=== PATIENT | female | born 1960 | race Caucasian/White ===

== ENCOUNTER 2021-05-31 06:23 | Day surgery (SDC) | payer BC, SELFPAY ==
[2021-05-24 14:43] VITALS: BMI 31.5
--- NOTE | 2021-05-27 08:22 | MHC.SHP ---
Pre-Procedural Eval Section A Date of Service: 05/27/21 The patient is an INPATIENT: No Changes since office visit: No Cold of Flu in the past 2 weeks, No New Medical Problems, No Changes in Medication and No Patient answered all questions The History & Physical has been completed within 30 days and I have reviewed it.: Yes Section B Chief Complaint: cataract left eye Allergies: Allergies Allergy/AdvReac Type Severity Reaction Status Date / Time azithromycin Allergy Intermediate Rash Verified 05/24/21 14:34 bupropion [From Wellbutrin] Allergy Intermediate Hives Verified 05/24/21 14:34 ciprofloxacin Allergy Intermediate Rash Verified 05/24/21 14:34 hydrocodone [From Vicodin] Allergy Intermediate Rash Verified 05/24/21 14:34 Penicillins Allergy Intermediate Hives Verified 05/24/21 14:33 Plan Diagnosis/Plan: Unchanged I have reviewed the history and physical and performed a pertinent physical examination on my patient. No changes have occurred unless specified.
--- NOTE | 2021-05-28 08:35 | HO.ANESPROP2 ---
Documented by User: Samantha Almonte NP 05/28/21 08:43 HPI - Anesthesia Eval Consult details Narrative: 61yo F for Left Cataract Extraction IOL Insertion Daily steroids for hypopituitarism. Bottle Washer requests stress dosing. Protocol on chart No prev cataract on record PCP cleared PMFSH Past Medical History Medical History Adrenal insufficiency CAD (coronary artery disease) Cataract Compression fracture of body of thoracic vertebra COPD (chronic obstructive pulmonary disease) COVID-19 vaccine series completed DDD (degenerative disc disease), cervical DDD (degenerative disc disease), lumbar Diabetes Elevated cholesterol Gout History of COVID-19 Hypopituitarism Hypothyroid Low back pain Numbness and tingling of foot Osteoporosis PVD (peripheral vascular disease) Schatzki's ring Use of cane as ambulatory aid Surgical History Surgical History History of angioplasty of peripheral vessel History of back surgery History of esophagogastroduodenoscopy (EGD) Hx of appendectomy Hx of colonoscopy Hx of tooth extraction Social History Social History (Updated 05/24/21 @ 14:42 by Inga Nolan RN) Household Members: Spouse and Family Housing: House Are you a primary assistant child care teacher to a significant other at home: No Do you presently have visiting nurse or other home services: No Patient Tobacco Use Status: Current everyday Tobacco user Tobacco use type: Cigarette Cigarettes Per Day: 5 Years Smoked: 50 Use of substances other than those prescribed or required for medical reasons: No Have you been hit, kicked, punched, or otherwise hurt by someone within the past year? If so, by whom?: No Are you DNR?: No Advance Directives: No Advance Directives Information Provided: No Advance Directives on File: No Meds Allergies Allergy/AdvReac Type Severity Reaction Status Date / Time azithromycin Allergy Intermediate Rash Verified 05/31/21 06:42 bupropion [From Wellbutrin] Allergy Intermediate Hives Verified 05/31/21 06:42 ciprofloxacin Allergy Intermediate Rash Verified 05/31/21 06:42 hydrocodone [From Vicodin] Allergy Intermediate Rash Verified 05/31/21 06:42 Penicillins Allergy Intermediate Hives Verified 05/31/21 06:42 Home Medications Medication Instructions Recorded Confirmed Last Taken Type albuterol sulfate 90 mcg/actuation 2 puff INHALATION Q4H PRN 05/24/21 05/24/21 Unknown History aerosol inhaler atorvastatin 40 mg tablet 2 tab PO BEDTIME 05/24/21 05/24/21 Unknown History calcium carbonate 600 mg-vitamin 1 tab PO BID 05/24/21 05/24/21 Unknown History D3 10 mcg (400 unit) tablet cyclobenzaprine 10 mg tablet 1 tab PO TID PRN 05/24/21 05/24/21 Unknown History fluoxetine 20 mg capsule 1 cap PO BEDTIME 05/24/21 05/24/21 Unknown History gabapentin 300 mg capsule 1 cap PO TID 05/24/21 05/24/21 05/31/21 05:45 History levothyroxine 100 mcg tablet 100 mcg PO DAILY 05/24/21 05/24/21 05/31/21 05:45 History metformin 500 mg tablet,extended 1 tab PO QAM 05/24/21 05/24/21 Unknown History release 24 hr omeprazole 20 mg capsule,delayed 1 cap PO DAILY 05/24/21 05/24/21 05/31/21 05:45 History release tramadol 50 mg tablet 2 tab PO TID PRN 05/24/21 05/24/21 05/31/21 05:45 History trospium 20 mg tablet 1 tab PO BID 05/24/21 05/24/21 05/31/21 05:45 History hydrocortisone 5 mg tablet mg PO BID 05/31/21 05/31/21 05/31/21 05:45 History Exam Exam Date and Time: May 28, 2021 0835 Height,Weight and Vital Signs: Height 5 ft 0.5 in Weight 74.389 kg Assessment and Plan Assessment Anesthesia Assessment: Chart Reviewed Documented by User: Lizandro Sanderson MD 05/31/21 07:00 [facility] Past Medical History Medical History Adrenal insufficiency CAD (coronary artery disease) Cataract Compression fracture of body of thoracic vertebra COPD (chronic obstructive pulmonary disease) COVID-19 vaccine series completed DDD (degenerative disc disease), cervical DDD (degenerative disc disease), lumbar Diabetes Elevated cholesterol Gout History of COVID-19 Hypopituitarism Hypothyroid Low back pain Numbness and tingling of foot Osteoporosis PVD (peripheral vascular disease) Schatzki's ring Use of cane as ambulatory aid Family History Family history of problems with anesthesia: No Surgical History Surgical History History of angioplasty of peripheral vessel History of back surgery History of esophagogastroduodenoscopy (EGD) Hx of appendectomy Hx of colonoscopy Hx of tooth extraction History of Problems with Anesthesia: Yes Social History Social History (Updated 05/24/21 @ 14:42 by Inga Nolan RN) Household Members: Spouse and Family Housing: House Are you a primary assistant child care teacher to a significant other at home: No Do you presently have visiting nurse or other home services: No Patient Tobacco Use Status: Current everyday Tobacco user Tobacco use type: Cigarette Cigarettes Per Day: 5 Years Smoked: 50 Use of substances other than those prescribed or required for medical reasons: No Have you been hit, kicked, punched, or otherwise hurt by someone within the past year? If so, by whom?: No Are you DNR?: No Advance Directives: No Advance Directives Information Provided: No Advance Directives on File: No Meds Allergies Allergy/AdvReac Type Severity Reaction Status Date / Time azithromycin Allergy Intermediate Rash Verified 05/31/21 06:42 bupropion [From Wellbutrin] Allergy Intermediate Hives Verified 05/31/21 06:42 ciprofloxacin Allergy Intermediate Rash Verified 05/31/21 06:42 hydrocodone [From Vicodin] Allergy Intermediate Rash Verified 05/31/21 06:42 Penicillins Allergy Intermediate Hives Verified 05/31/21 06:42 Home Medications Medication Instructions Recorded Confirmed Last Taken Type albuterol sulfate 90 mcg/actuation 2 puff INHALATION Q4H PRN 05/24/21 05/24/21 Unknown History aerosol inhaler atorvastatin 40 mg tablet 2 tab PO BEDTIME 05/24/21 05/24/21 Unknown History calcium carbonate 600 mg-vitamin 1 tab PO BID 05/24/21 05/24/21 Unknown History D3 10 mcg (400 unit) tablet cyclobenzaprine 10 mg tablet 1 tab PO TID PRN 05/24/21 05/24/21 Unknown History fluoxetine 20 mg capsule 1 cap PO BEDTIME 05/24/21 05/24/21 Unknown History gabapentin 300 mg capsule 1 cap PO TID 05/24/21 05/24/21 05/31/21 05:45 History levothyroxine 100 mcg tablet 100 mcg PO DAILY 05/24/21 05/24/21 05/31/21 05:45 History metformin 500 mg tablet,extended 1 tab PO QAM 05/24/21 05/24/21 Unknown History release 24 hr omeprazole 20 mg capsule,delayed 1 cap PO DAILY 05/24/21 05/24/21 05/31/21 05:45 History release tramadol 50 mg tablet 2 tab PO TID PRN 05/24/21 05/24/21 05/31/21 05:45 History trospium 20 mg tablet 1 tab PO BID 05/24/21 05/24/21 05/31/21 05:45 History hydrocortisone 5 mg tablet mg PO BID 05/31/21 05/31/21 05/31/21 05:45 History Exam Airway Mallampati Class: II TM Dist: >3cm Denture: Upper Loose/Missing/Broken Teeth: Yes (lower middle tooth missing, poor dentition) Heart: [id number] Lungs: cta b/l Assessment and Plan Assessment Anesthesia Assessment: Anesthesia Plan Discussed Final Anesthetic Review Family History of Problems with Anesthesia: No History of Problems with Anesthesia: Yes NPO: Yes ASA Class: III Final Preanesthetic Review: No Changes in Pt Med Stat, Meds/Allgs Chart Reviewed, Consent Obtained/Reviewed and Anes Risks/Benef Reviewed Patient Risk: Intermediate Procedure Risk: Low Assessment/Block/Sedation in SS: Assess/Block/Sedation-SS Anesthetic Plan Anesthetic Plan: MAC: and Agree w/ Assess. and Plan Disposition: Standard PACU
[2021-05-31 06:48] LABS: Glucose, Whole Blood 120 mg/dL (60-115)
[2021-05-31 07:04] VITALS: BP 114/54; PULSE 96; RESP 16; TEMP 36.5; O2SAT 94
[2021-05-31] MEDS: Tetracaine HCl/PF 0.5% Oph Sol 4 ML DROPS 1 DROP EYE-LEFT (07:04)
[2021-05-31] MEDS: Tropicamide 1 % Ophth Sol 3 ML BTL 1 DROP EYE-LEFT ×3 (07:05→07:14)
[2021-05-31] MEDS: Lactated Ringers 500 ML 50 ML IV (07:06)
[2021-05-31] MEDS: Phenylephrine HCL 2.5% Oph SoL 2 ML BOTTLE 1 DROP EYE-LEFT ×3 (07:08→07:17)
--- NOTE | 2021-05-31 07:51 | HO.PNOPHT ---
Ophthalmology Procedure Procedure Date of Service: 05/31/21 Ophthalmology Viscoelastic: Heallonnie Duet Dual Pack Pro Ophthalmology Lenses: TECNIS [id number] (16.5) Procedure Notes: PREOPERATIVE DIAGNOSIS: Decreased visual acuity left eye secondary to cataract POSTOPERATIVE DIAGNOSIS: Same PROCEDURE: Left cataract extraction with intraocular lens insertion SURGEON: Aaron Peres M.D. ANESTHESIA: Topical/MAC ESTIMATED BLOOD LOSS: None COMPLICATIONS: None After obtaining informed consent, the patient was brought to the operation room suite and placed in the supine position. After adequate sedation per anesthesia, topical drops of Tetracaine were given to the left eye. The eye was then prepped and draped in the usual sterile fashion. The operating room microscope was then positioned over the operative eye and a lid speculum placed. A paracentesis was created. Viscoelastic was then instilled into the anterior chamber. A three plane incision was then created temporally, utilizing a 2.85 mm keratome. Capsulotomy forceps were then utilized to create a circular tear capsulotomy. Hydrodissection and hydrodelineation were carried out until adequate mobilization of the nucleus occurred. Phacoemulsification was then utilized to remove the dense central nucleus followed by removal of the cortical material utilizing the automated aspiration irrigation unit. Viscoat elastic was instilled into the posterior capsular bag followed by placement of a posterior chamber intraocular lens without difficulty. The residual Viscoat elastic was then removed utilizing the automated IA machine. The wound was check and found to be watertight. The patient tolerated the procedure well and the lid speculum was removed. Intracameral injection of Vigamox 0.1 mL followed by a subtenon injection of Kenalog-40 0.2 mL were administered. The patient will be seen in the a.m.
[2021-05-31 08:14] VITALS: BP 114/66; PULSE 85; RESP 17; TEMP 36.6; O2SAT 94
== END 2021-05-31 08:31 | disposition home or self-care (01) ==
PROVIDERS: PCP Internal Medicine; Visit Provider Ophthalmology
PROC: (CPT 66985; principal; 2021-05-31 08:50)
DX: H25.12 Age-related nuclear cataract, left eye (principal); H54.7 Unspecified visual loss; D35.2 Benign neoplasm of pituitary gland; E23.0 Hypopituitarism; E27.40 Unspecified adrenocortical insufficiency; J44.9 Chronic obstructive pulmonary disease, unspecified; E03.9 Hypothyroidism, unspecified; I25.10 Atherosclerotic heart disease of native coronary artery without angina pectoris; I73.9 Peripheral vascular disease, unspecified; E78.00 Pure hypercholesterolemia, unspecified; E11.9 Type 2 diabetes mellitus without complications; Z79.84 Long term (current) use of oral hypoglycemic drugs; Z79.82 Long term (current) use of aspirin; Z79.899 Other long term (current) drug therapy; F17.210 Nicotine dependence, cigarettes, uncomplicated; Z88.0 Allergy status to penicillin; Z88.1 Allergy status to other antibiotic agents; Z88.8 Allergy status to other drugs, medicaments and biological substances; Z86.16 Personal history of COVID-19
CPT/HCPCS: 66984; 82947; J2250; J2405; J3010; J3300; V2632

== ENCOUNTER 2021-06-21 08:35 | Day surgery (SDC) | payer BC, SELFPAY ==
[2021-05-24 14:51] VITALS: BMI 31.5
--- NOTE | 2021-06-17 16:26 | MHC.SHP ---
Pre-Procedural Eval Section A Date of Service: 06/17/21 The patient is an INPATIENT: No Changes since office visit: No Cold of Flu in the past 2 weeks, No New Medical Problems, No Changes in Medication and No Patient answered all questions The History & Physical has been completed within 30 days and I have reviewed it.: Yes Section B Chief Complaint: cataract right eye Allergies: Allergies Allergy/AdvReac Type Severity Reaction Status Date / Time azithromycin Allergy Intermediate Rash Verified 05/31/21 06:42 bupropion [From Wellbutrin] Allergy Intermediate Hives Verified 05/31/21 06:42 ciprofloxacin Allergy Intermediate Rash Verified 05/31/21 06:42 hydrocodone [From Vicodin] Allergy Intermediate Rash Verified 05/31/21 06:42 Penicillins Allergy Intermediate Hives Verified 05/31/21 06:42 Plan Diagnosis/Plan: Unchanged I have reviewed the history and physical and performed a pertinent physical examination on my patient. No changes have occurred unless specified.
--- NOTE | 2021-06-18 09:07 | HO.ANESPROP2 ---
Documented by User: Samantha Almonte NP 06/18/21 09:08 HPI - Anesthesia Eval Consult details Narrative: 61yo F for Right Cataract Extraction IOL Insertion PCP Cleared Left eye 05/31/21 with MAC: Fent 50, Midaz 1, Zofran 4, Hydrocortisone 100 Daily steroids for hypopituitarism. Clinical Exercise Physiologist requests stress dosing. Protocol on chart [facility] Past Medical History Medical History Adrenal insufficiency CAD (coronary artery disease) Cataract Compression fracture of body of thoracic vertebra COPD (chronic obstructive pulmonary disease) COVID-19 vaccine series completed DDD (degenerative disc disease), cervical DDD (degenerative disc disease), lumbar Diabetes Elevated cholesterol Gout History of COVID-19 Hypopituitarism Hypothyroid Low back pain Numbness and tingling of foot Osteoporosis PVD (peripheral vascular disease) Schatzki's ring Use of cane as ambulatory aid Family History Family history of problems with anesthesia: No Surgical History Surgical History History of angioplasty of peripheral vessel History of back surgery History of esophagogastroduodenoscopy (EGD) Hx of appendectomy Hx of colonoscopy Hx of tooth extraction History of Problems with Anesthesia: Yes Social History Social History (Updated 06/21/21 @ 10:54 by Sandrine Trejo MD) Household Members: Spouse and Family Housing: House Are you a primary pharmacist critical care to a significant other at home: No Do you presently have visiting nurse or other home services: No Patient Tobacco Use Status: Current everyday Tobacco user Tobacco use type: Cigarette Cigarettes Per Day: 5 Years Smoked: 50 Smoked in Last 30 Days: Yes Have you been hit, kicked, punched, or otherwise hurt by someone within the past year? If so, by whom?: No Are you DNR?: No Advance Directives: No Advance Directives Information Provided: Yes Recently lost weight without trying: No Meds Allergies Allergy/AdvReac Type Severity Reaction Status Date / Time azithromycin Allergy Intermediate Rash Verified 05/31/21 06:42 bupropion [From Wellbutrin] Allergy Intermediate Hives Verified 05/31/21 06:42 ciprofloxacin Allergy Intermediate Rash Verified 05/31/21 06:42 hydrocodone [From Vicodin] Allergy Intermediate Rash Verified 05/31/21 06:42 Penicillins Allergy Intermediate Hives Verified 05/31/21 06:42 Home Medications Medication Instructions Recorded Confirmed Last Taken Type albuterol sulfate 90 mcg/actuation 2 puff INHALATION Q4H PRN 05/24/21 05/24/21 Unknown History aerosol inhaler atorvastatin 40 mg tablet 2 tab PO BEDTIME 05/24/21 05/24/21 Unknown History calcium carbonate 600 mg-vitamin 1 tab PO BID 05/24/21 05/24/21 Unknown History D3 10 mcg (400 unit) tablet cyclobenzaprine 10 mg tablet 1 tab PO TID PRN 05/24/21 05/24/21 Unknown History fluoxetine 20 mg capsule 1 cap PO BEDTIME 05/24/21 05/24/21 Unknown History gabapentin 300 mg capsule 1 cap PO TID 05/24/21 05/24/21 06/21/21 History levothyroxine 100 mcg tablet 100 mcg PO DAILY 05/24/21 05/24/21 06/21/21 History metformin 500 mg tablet,extended 1 tab PO QAM 05/24/21 05/24/21 Unknown History release 24 hr omeprazole 20 mg capsule,delayed 1 cap PO DAILY 05/24/21 05/24/21 05/31/21 05:45 History release tramadol 50 mg tablet 2 tab PO TID PRN 05/24/21 05/24/21 06/21/21 History trospium 20 mg tablet 1 tab PO BID 05/24/21 05/24/21 06/21/21 History hydrocortisone 5 mg tablet mg PO BID 05/31/21 05/31/21 06/21/21 History Exam Exam Date and Time: June 18, 2021 0907 Height,Weight and Vital Signs: Height 5 ft 0.5 in Weight 74.389 kg Assessment and Plan Assessment Anesthesia Assessment: Chart Reviewed Final Anesthetic Review Family History of Problems with Anesthesia: No History of Problems with Anesthesia: Yes Documented by User: Sandrine Trejo MD 06/21/21 10:57 PMFSH Active Problems Active Problems: Denies recent chest pain Stress dose steroids requested by electric meter technician. Administered as ordered. Past Medical History Medical History Adrenal insufficiency CAD (coronary artery disease) Cataract Compression fracture of body of thoracic vertebra COPD (chronic obstructive pulmonary disease) COVID-19 vaccine series completed DDD (degenerative disc disease), cervical DDD (degenerative disc disease), lumbar Diabetes Elevated cholesterol Gout History of COVID-19 Hypopituitarism Hypothyroid Low back pain Numbness and tingling of foot Osteoporosis PVD (peripheral vascular disease) Schatzki's ring Use of cane as ambulatory aid Surgical History Surgical History History of angioplasty of peripheral vessel History of back surgery History of esophagogastroduodenoscopy (EGD) Hx of appendectomy Hx of colonoscopy Hx of tooth extraction Social History Social History (Updated 06/21/21 @ 10:54 by Sandrine Trejo MD) Household Members: Spouse and Family Housing: House Are you a primary pharmacist critical care to a significant other at home: No Do you presently have visiting nurse or other home services: No Patient Tobacco Use Status: Current everyday Tobacco user Tobacco use type: Cigarette Cigarettes Per Day: 5 Years Smoked: 50 Smoked in Last 30 Days: Yes Have you been hit, kicked, punched, or otherwise hurt by someone within the past year? If so, by whom?: No Are you DNR?: No Advance Directives: No Advance Directives Information Provided: Yes Recently lost weight without trying: No Meds Allergies Allergy/AdvReac Type Severity Reaction Status Date / Time azithromycin Allergy Intermediate Rash Verified 05/31/21 06:42 bupropion [From Wellbutrin] Allergy Intermediate Hives Verified 05/31/21 06:42 ciprofloxacin Allergy Intermediate Rash Verified 05/31/21 06:42 hydrocodone [From Vicodin] Allergy Intermediate Rash Verified 05/31/21 06:42 Penicillins Allergy Intermediate Hives Verified 05/31/21 06:42 Home Medications Medication Instructions Recorded Confirmed Last Taken Type albuterol sulfate 90 mcg/actuation 2 puff INHALATION Q4H PRN 05/24/21 05/24/21 Unknown History aerosol inhaler atorvastatin 40 mg tablet 2 tab PO BEDTIME 05/24/21 05/24/21 Unknown History calcium carbonate 600 mg-vitamin 1 tab PO BID 05/24/21 05/24/21 Unknown History D3 10 mcg (400 unit) tablet cyclobenzaprine 10 mg tablet 1 tab PO TID PRN 05/24/21 05/24/21 Unknown History fluoxetine 20 mg capsule 1 cap PO BEDTIME 05/24/21 05/24/21 Unknown History gabapentin 300 mg capsule 1 cap PO TID 05/24/21 05/24/21 06/21/21 History levothyroxine 100 mcg tablet 100 mcg PO DAILY 05/24/21 05/24/21 06/21/21 History metformin 500 mg tablet,extended 1 tab PO QAM 05/24/21 05/24/21 Unknown History release 24 hr omeprazole 20 mg capsule,delayed 1 cap PO DAILY 05/24/21 05/24/21 05/31/21 05:45 History release tramadol 50 mg tablet 2 tab PO TID PRN 05/24/21 05/24/21 06/21/21 History trospium 20 mg tablet 1 tab PO BID 05/24/21 05/24/21 06/21/21 History hydrocortisone 5 mg tablet mg PO BID 05/31/21 05/31/21 06/21/21 History Exam Height,Weight and Vital Signs: Height 5 ft 0.5 in Weight 74.389 kg Vital Signs Temp Pulse Resp BP Pulse Ox 06/21/21 10:00 96.9 F 91 16 135/65 96 Pertinent Lab Results Pertinent Lab Results: Lab Results 06/21/21 Range/Units 10:04 POC Glucose 102 (60-115) mg/dL Airway Mallampati Class: II TM Dist: >3cm Neck ROM: Full Denture: Upper Loose/Missing/Broken Teeth: Yes (Missing lower middle) Heart: RRR Lungs: CTAB Assessment and Plan Assessment Anesthesia Assessment: Anesthesia Plan Discussed Final Anesthetic Review NPO: Yes ASA Class: III Final Preanesthetic Review: No Changes in Pt Med Stat, Meds/Allgs Chart Reviewed, Consent Obtained/Reviewed and Anes Risks/Benef Reviewed Patient Risk: Intermediate Procedure Risk: Low Assessment/Block/Sedation in SS: Assess/Block/Sedation-SS Anesthetic Plan Anesthetic Plan: MAC: Disposition: Standard PACU
[2021-06-21 10:00] VITALS: BP 135/65; PULSE 91; RESP 16; TEMP 36.1; O2SAT 96
[2021-06-21] MEDS: Lactated Ringers 500 ML 50 ML IV (10:06)
[2021-06-21] MEDS: Tetracaine HCl/PF 0.5% Oph Sol 4 ML DROPS 1 DROP EYE-RIGHT (10:10)
[2021-06-21] MEDS: Tropicamide 1 % Ophth Sol 3 ML BTL 1 DROP EYE-RIGHT ×3 (10:12→10:23)
[2021-06-21] MEDS: Phenylephrine HCL 2.5% Oph SoL 2 ML BOTTLE 1 DROP EYE-RIGHT ×3 (10:14→10:26)
[2021-06-21 10:22] LABS: Glucose, Whole Blood 102 mg/dL (60-115)
--- NOTE | 2021-06-21 10:57 | HO.PNOPHT ---
Ophthalmology Procedure Procedure Date of Service: 06/21/21 Ophthalmology Viscoelastic: Marietta Keet Dual Pack Pro Ophthalmology Lenses: TECNABEEL [id number] (16) Procedure Notes: PREOPERATIVE DIAGNOSIS: Decreased visual acuity right eye secondary to cataract POSTOPERATIVE DIAGNOSIS: Same PROCEDURE: Right cataract extraction with intraocular lens insertion SURGEON: Aaron Peres M.D. ANESTHESIA: Topical/MAC ESTIMATED BLOOD LOSS: None COMPLICATIONS: None After obtaining informed consent, the patient was brought to the operating room suite and placed in the supine position. After adequate sedation per anesthesia, topical drops of Tetracaine were given to the right eye. The eye was then prepped and draped in the usual sterile fashion. The operating room microscope was then positioned over the operative eye and a lid speculum placed. A paracentesis was created. Viscoelastic was then instilled into the anterior chamber. A three plane incision was then created temporally, utilizing a 2.85 mm keratome. Capsulotomy forceps were then utilized to create a circular tear capsulotomy. Hydrodissection and hydrodelineation were carried out until adequate mobilization of the nucleus occurred. Phacoemulsification was then utilized to remove the dense central nucleus followed by removal of the cortical material utilizing the automated aspiration irrigation unit. Viscoelastic was instilled into the posterior capsular bag followed by placement of a posterior chamber intraocular lens without difficulty. The residual Viscoelastic was then removed utilizing the automated IA machine. The wound was checked and found to be watertight. The patient tolerated the procedure well and the lid speculum was removed. Intracameral injection of Vigamox 0.1 mL followed by a subtenon injection of Kenalog-40 0.2 mL were administered. The patient will be seen in the a.m.
[2021-06-21 11:20] VITALS: PULSE 88; RESP 18; TEMP 36.4; O2SAT 93
== END 2021-06-21 11:37 ==
LOC: HO.SSS 08:35
PROVIDERS: PCP Internal Medicine; Visit Provider Ophthalmology
PROC: (CPT 66985; principal; 2021-06-21 11:00)
DX: H25.11 Age-related nuclear cataract, right eye (principal); H54.7 Unspecified visual loss; D35.2 Benign neoplasm of pituitary gland; E78.00 Pure hypercholesterolemia, unspecified; E03.9 Hypothyroidism, unspecified; E27.40 Unspecified adrenocortical insufficiency; J44.9 Chronic obstructive pulmonary disease, unspecified; I73.9 Peripheral vascular disease, unspecified; E11.9 Type 2 diabetes mellitus without complications; Z79.899 Other long term (current) drug therapy; Z79.82 Long term (current) use of aspirin; F17.210 Nicotine dependence, cigarettes, uncomplicated; Z88.0 Allergy status to penicillin; Z88.1 Allergy status to other antibiotic agents; Z88.8 Allergy status to other drugs, medicaments and biological substances; Z86.16 Personal history of COVID-19
CPT/HCPCS: 66984; 82947; J2405; J3010; J3300; V2632